=== PATIENT | female | born 1975 ===

== ENCOUNTER 2020-07-05 11:53 | Emergency (ER) | payer SELFPAY ==
[2020-07-05] MEDS ORDERED: Bacitracin 1 PK ONE (12:24)
[2020-07-05] MEDS ORDERED: Boostrix 0.5 ML (Tdap) VIAL ONE (12:48)
== END 2020-07-05 12:20 | disposition home or self-care (01) ==
LOC: NAV ERS 11:53
DX: S91.112A Laceration without foreign body of left great toe without damage to nail, initial encounter (principal); Z23 Encounter for immunization; W26.0XXA Contact with knife, initial encounter
CPT/HCPCS: 90471; 90715